=== PATIENT | male | born 1995 | race American Indian/Alaskan Native ===

== ENCOUNTER 2020-06-01 16:39 | Emergency (ER) | payer OTHER ==
[2020-06-01 17:22] LABS: Basophils % (Auto) 0.4 % (0.0-1.8); Eosinophils # (Auto) 0.4 K/mm3 (0.0-0.4); Eosinophils % (Auto) 4.1 % (0.0-4.3); Hematocrit 43.1 % (35.5-45.6); Hemoglobin 14.6 gm/dl (11.8-15.2); Lymphocytes # (Auto) 3.3 K/mm3 (1.2-5.4); Lymphocytes % (Auto) 32.5 % (13.4-35.0); Mean Corpuscular HGB Conc 34 % (32-34); Mean Corpuscular Volume 88 fl (84-94); Monocytes # (Auto) 0.8 K/mm3 (0.0-0.8); Monocytes % (Auto) 7.6 % (0.0-7.3); Platelet Count 275 K/mm3 (140-440); Red Blood Count 4.91 M/mm3 (3.65-5.03); Red Cell Distribution Width 14.7 % (13.2-15.2)
[2020-06-01 17:49] LABS: BUN/Creatinine Ratio 17; Blood Urea Nitrogen 15 mg/dL (9-20); Calcium 9.3 mg/dL (8.4-10.2); Hemolysis Index 4
--- NOTE | 2020-06-01 22:33 | Emergency Department Report ---
ED GI Bleed HPI - General Chief complaint: GI Bleed Stated complaint: BLOOD IN STOOL Time Seen by Provider: 06/01/20 22:07 Source: patient Mode of arrival: Ambulatory Limitations: No Limitations - History of Present Illness Initial comments: Patient is a 25-year-old F [place] male with no significant past medical history who is presenting with blood in his stool for the past 2 days. Patient states there is some bright red blood in his patient into the toilet. He has a minimal amount of rectal pain. He has no abdominal pain at all. Patient is not on blood thinners or take any medication will cause bleeding. Patient denies syncope or near syncope. Patient states he is having relatively normal bowel movements with minimal straining. - Related Data Previous Rx's Medication Instructions Recorded Last Taken Type Albuterol Sulfate [Ventolin HFA] 2 puff IH Q4H PRN #1 hfa.aer.ad 08/26/14 Unknow n Rx Codeine Phosphate/Guaifenesin 10 ml PO TID #118 ml 08/26/14 Unknown Rx [Guaifenesin-Codeine Syrup] Ibuprofen [Motrin 800 MG tab] 800 mg PO Q8H PRN #21 tablet 08/26/14 Unknown Rx Mometasone Furoate [Nasonex] 2 spray NS QDAY #1 bottle 08/26/14 Unknown Rx Pramoxine 1% [Proctofoam] 1 applicatio TP 5XD #10 foam 06/01/20 Unknown Rx Allergies Allergy/AdvReac Type Severity Reaction Status Date / Time No Known Allergies Allergy Verified 08/26/14 14:50 ED Review of Systems ROS: Stated complaint: BLOOD IN STOOL Other details as noted in HPI Comment: All other systems reviewed and negative ED Past Medical Hx - Past Medical History Previous Medical History?: Yes Hx Asthma: Yes ("as child") - Surgical History Past Surgical History?: No - Social History Smoking Status: Never Smoker Substance Use Type: None - Medications Home Medications: Home Medications Medication Instructions Recorded Confirmed Last Taken Type Albuterol Sulfate [Ventolin HFA] 2 puff IH Q4H PRN #1 hfa.aer.ad 08/26/14 Unknown Rx Codeine Phosphate/Guaifenesin 10 ml PO TID #118 ml 08/26/14 Unknown Rx [Guaifenesin-Codeine Syrup] Ibuprofen [Motrin 800 MG tab] 800 mg PO Q8H PRN #21 tablet 08/26/14 Unknown Rx Mometasone Furoate [Nasonex] 2 spray NS QDAY #1 bottle 08/26/14 Unknown Rx Pramoxine 1% [Proctofoam] 1 applicatio TP 5XD #10 foam 06/01/20 Unknown Rx ED Physical Exam - General Limitations: No Limitations General appearance: alert, in no apparent distress - Head Head exam: Present: atraumatic, normocephalic - Eye Eye exam: Present: normal appearance, PERRL, EOMI - ENT ENT exam: Present: normal orophraynx, mucous membranes moist - Neck Neck exam: Present: normal inspection - Respiratory Respiratory exam: Present: normal lung sounds bilaterally. Absent: respiratory distress, wheezes, rales, rhonchi - Cardiovascular Cardiovascular Exam: Present: regular rate, normal rhythm, normal heart sounds. Absent: systolic murmur, diastolic murmur, rubs, gallop - GI/Abdominal GI/Abdominal exam: Present: soft, normal bowel sounds. Absent: distended, tenderness, guarding, rebound - Rectal Rectal exam: Present: normal inspection, normal rectal tone, heme (+) stool (trace). Absent: black stool, bloody stool, hemorrhoids (none felt on bedside exam) - Extremities Exam Extremities exam: Present: normal inspection - Back Exam Back exam: Present: normal inspection - Neurological Exam Neurological exam: Present: alert, oriented X3 - Psychiatric Psychiatric exam: Present: normal affect, normal mood - Skin Skin exam: Present: warm, dry, intact, normal color. Absent: rash ED Course Vital Signs 06/01/20 16:55 Temperature 98.2 F Pulse Rate 70 Respiratory 18 Rate Blood Pressure 126/76 O2 Sat by Pulse 99 Oximetry ED Medical Decision Making - Lab Data Result diagrams: 06/01/20 16:59 06/01/20 16:59 Lab Results 06/01/20 06/01/20 Range/Units 16:59 16:59 WBC 10.2 (4.5-11.0) K/mm3 RBC 4.91 (3.65-5.03) M/mm3 Hgb 14.6 (11.8-15.2) gm/dl Hct 43.1 (35.5-45.6) % MCV 88 (84-94) fl MCH 30 (28-32) pg MCHC 34 (32-34) % RDW 14.7 (13.2-15.2) % Plt Count 275 (140-440) K/mm3 Lymph % (Auto) 32.5 (13.4-35.0) % Walsh % (Auto) 7.6 H (0.0-7.3) % Eos % (Auto) 4.1 (0.0-4.3) % Baso % (Auto) 0.4 (0.0-1.8) % Lymph # 3.3 (1.2-5.4) K/mm3 Walsh # 0.8 (0.0-0.8) K/mm3 Eos # 0.4 (0.0-0.4) K/mm3 Baso # 0.0 (0.0-0.1) K/mm3 Seg Neutrophils % 55.4 (40.0-70.0) % Seg Neutrophils # 5.6 (1.8-7.7) K/mm3 Sodium 139 (137-145) mmol/L Potassium 3.5 L (3.6-5.0) mmol/L Chloride 100.3 (98-107) mmol/L Carbon Dioxide 22 (22-30) mmol/L Anion Gap 20 mmol/L BUN 15 (9-20) mg/dL Creatinine 0.9 (0.8-1.3) mg/dL Estimated GFR > 60 ml/min BUN/Creatinine Ratio 17 % Glucose 121 H (75-100) mg/dL Calcium 9.3 (8.4-10.2) mg/dL - Medical Decision Making Trace amount of blood seen on Hemoccult. Patient will be given GI follow-up. He is vital signs are stable and hemoglobin is within normal limits. Critical care attestation.: If time is entered above; I have spent that time in minutes in the direct care of this critically ill patient, excluding procedure time. ED Disposition Clinical Impression: GI bleed Disposition: TO HOME OR SELFCARE Is pt being admited?: No Does the pt Need Aspirin: No Condition: Stable Instructions: Rectal Bleeding (ED) Referrals: PRIMARY CARE, [Primary Care Provider] - 3-5 Days Time of Disposition: 22:33
[2020-06-01 22:42] VITALS: BP 129/68
== END 2020-06-01 22:55 | disposition home or self-care (01) ==
LOC: ED 16:39
DX: K92.2 Gastrointestinal hemorrhage, unspecified (principal); J45.909 Unspecified asthma, uncomplicated; Z79.899 Other long term (current) drug therapy
CPT/HCPCS: 36415; 80048; 85025; 99283